=== PATIENT | female | born 1950 | race Caucasian/White ===

== ENCOUNTER 2023-07-05 00:59 | Inpatient (IN) | payer MEDICARE, OTHER ==
[2023-07-05] VITALS (17 sets, daily range): BP systolic 129–182; BP diastolic 71–94; PULSE 79–93; TEMP 98.1–99.2
[~2023-07-05] VITALS: Ht 167.6 cm; Wt 71.6 kg
[~2023-07-05 00:59] MED LIST: ASPIRIN E.C. 8181 MG PO; LOPRESSOR 550 MG/TAB PO; NORCO 325 MG-51 TAB PO; PRAVACHOL 40MG40 MG PO
[2023-07-05] MEDS ORDERED: Morphine 4 MG/ML VIAL IV PRN (01:15)
[2023-07-05] MEDS ORDERED: Naloxone 0.4 MG/ML VIAL IV PRN ×2 (01:15→20:00)
[2023-07-05] MEDS ORDERED: oxyCODONE 5 MG TAB PO PRN (01:15)
[2023-07-05] MEDS ORDERED: D5 1/2 NS 1,000 ML IV SCH (01:15)
[2023-07-05] MEDS ORDERED: COZAAR 50MG50 MG/TAB PO (01:26)
[2023-07-05] MEDS ORDERED: GLUCOPHAGE500 MG/TAB PO (01:27)
[2023-07-05] MEDS ORDERED: MACRODANTIN100 PO (01:29)
[2023-07-05] MEDS ORDERED: SYNTHROID0.05 MG/TA PO (01:29)
[2023-07-05] MEDS ORDERED: NAMENDA5 MG PO (01:30)
[2023-07-05] MEDS ORDERED: CALCIUM 600MG+D1 TAB PO (01:33)
[2023-07-05] MEDS ORDERED: Acetaminophen 500 MG TAB PO SCH (02:00)
[2023-07-05] MEDS ORDERED: Dextrose (Glucose) 15 GM (4 x 3.75 GM) Chewable TABLET PACK PO PRN (02:00)
[2023-07-05] MEDS ORDERED: hydrALAZINE 20 MG/ML 1 ML VIAL IV PRN (02:00)
[2023-07-05] MEDS ORDERED: Dextrose 50% Water 25 GM/50 ML SYRINGE IV PRN (02:00)
[2023-07-05] MEDS ORDERED: Glucagon 1 MG VIAL IM PRN (02:00)
--- NOTE | 2023-07-05 02:24 | NUR ---
patient arrived from [facility] via EMS transport at 0015, alert and oriented x4 with some forgetfullness, grandaughter at bedside. pt denies chest pain and shortness of breath. reports 10/10 aching pain in the right hip that worsens with movement, tenderness to right hip and right leg, tylenol given per orders. small scabbed cut on left forearm with some swelling and no additional skin abnormalities noted. IV in RAC is patent, site clean dry and intact with D5 1/2 NS running at 75 ml/hr. hartmann in place draining yellow clear urine. pt has no further needs, questions, or concerns at this time. fall precautions in place, call light within reach. will continue to monitor.
[2023-07-05 02:46] LABS: BASO # 0.1 K/mm3 (0.0-0.2); BASO % 0.5 % (0.0-2.0); EOS # 0.1 K/mm3 (0.0-0.7); EOS % 1.1 % (0.0-4.0); GRAN # 10.2 K/mm3 (1.4-6.5); GRAN % 87.3 % (42.2-75.2); HEMOGLOBIN 12.6 g/dl (12.5-16.0); LYMPH # 0.7 K/mm3 (1.2-3.4); LYMPH % 5.6 % (20.0-51.0); MEAN CELL VOLUME 87 fl (80.0-100.0); MEAN CORPUSCULAR HEMOGLOBIN 31 pg (27-31); MEAN CORPUSCULAR HGB CONC 35 g/dl (33.0-37.0); MEAN PLATELET VOLUME 9.4 fl (7.4-10.4); MONO # 0.6 K/mm3 (0.1-0.6); PLATELET COUNT 166 K/mm3 (130-400); RED BLOOD COUNT 4.09 M/mm3 (4.10-5.30); REDCELL DISTRIBUTION WIDTH-CV 12.9 % (11.5-14.5)
[2023-07-05 02:52] LABS: HEMATOCRIT 35.7 % (37.0-47.0)
[2023-07-05 02:55] LABS: INR 1.1 (0.8-3.0); PROTHROMBIN TIME 12.1 SECONDS (9.7-12.8)
[2023-07-05 03:26] LABS: ALBUMIN 3.5 gm/dL (3.4-4.8); BILIRUBIN,TOTAL 0.7 mg/dL (0.2-1.2); CALCIUM 9.1 mg/dL (8.4-10.2); CREATININE, serum 0.82 mg/dL (0.57-1.11); POTASSIUM 4.5 mmol/L (3.5-4.5); TOTAL PROTEIN 6.2 gm/dL (6.2-8.1)
[2023-07-05] MEDS ORDERED: Insulin Aspart (NovoLOG) SQ SCH (06:00)
--- NOTE | 2023-07-05 07:17 | NUR ---
CONTACTED [facility], NOTIFIED OF CONSULT. THEY ARE AWARE.
--- NOTE | 2023-07-05 08:52 | NUR ---
PT RESTING IN BED. PT IS CLEAR FOR SURGERY PENDING BNP RESULTS, JARED JIMENEZ AWARE.
[2023-07-05] MEDS ORDERED: Influenza Virus Vaccine, Hi-Dose Quad '23-24 (65 YR+) 0.7 ML SYRINGE IM SCH (09:00)
--- NOTE | 2023-07-05 09:58 | NUR ---
NOTIFIED AND JARED JIMENEZ OF LAB RESULTS, PT IS CLEAR FOR SURGERY.
[2023-07-05] MEDS ORDERED: TOPROL XL100 MG PO (10:36)
--- NOTE | 2023-07-05 11:03 | NUR ---
General Intern met with patient and her family to discuss discharge planning. Patient's Orestes (ph#[phone]) and granddaughter Christina are at bedside. Christina remarked that she works at this hospital in diabetes education. Patient lives [place] outside of [place] and sees Dr. Melgar for [facility]. Patient obtains medications from [facility] in [place]. Patient has a cane and walker available at home, however she stated she does not like them. Patient sometimes will use her cane, but rarely the walker. Patient advised she is normally independent with ADLS. Patient brought in her DPOA-HC and SW took a copy and placed it in her chart. Patient is hopeful to have surgery today and her family advised they would like to go to [facility] after surgery. ADRIENNE contacted Myranda at [facility] and faxed referral. Discharge Plan: [facility], referral pending
[2023-07-05] MEDS ORDERED: LR 1,000 ML IV SCH (11:15)
--- NOTE | 2023-07-05 14:24 | NUR ---
PT TO SURGERY PER BED WITH LUC AT THIS TIME.
[2023-07-05] MEDS ORDERED: Lidocaine PF 2% (20 MG/ML) 5 ML VIAL ONE (14:55)
[2023-07-05] MEDS ORDERED: fentaNYL 50 MCG/ML 2 ML VIAL ONE (14:56)
[2023-07-05] MEDS ORDERED: HYDROmorphone 2 MG/1 ML VIAL ONE (16:08)
[2023-07-05] MEDS ORDERED: fentaNYL 50 MCG/ML 2 ML VIAL IV PRN (17:45)
[2023-07-05] MEDS ORDERED: HYDROmorphone 2 MG/1 ML VIAL IV PRN (17:45)
[2023-07-05] MEDS ORDERED: Ondansetron 4 MG/2 ML VIAL IV PRN (17:45)
--- NOTE | 2023-07-05 18:45 | NUR ---
PT RETURNS FROM SURGERY PER BED. AWAKENS TO NAME, SLEEPY. HAS OXYMASK @6L. IVF TO LT HAND INFUSING WITHOUT PROBLEM. RT HIP WITH ASHELY DRSG AND ICE PACK. SCDS AND TEDS ON. FAMILY AT BEDSIDE.
[2023-07-05] MEDS ORDERED: HYDROcodone/Acetaminophen 7.5-325 MG TAB PO PRN (20:00)
[2023-07-05] MEDS ORDERED: traMADol 50 MG TAB PO PRN (20:00)
--- NOTE | 2023-07-05 20:00 | NUR ---
PT RESTING WELL. FAMILY LEFT FOR THE NIGHT. VSS.
[2023-07-05] MEDS ORDERED: Aspirin Buffered 325 MG TAB PO SCH (21:00)
--- NOTE | 2023-07-05 22:00 | NUR ---
PT ROUSES TO NAME, TAKES ASA WITH WATER, DOES WELL. OXYMASK AT 3L.
[2023-07-06] VITALS (10 sets, daily range): BP systolic 134–168; BP diastolic 79–99; PULSE 68–111; TEMP 97.8–98.6
[2023-07-06] MEDS ORDERED: ceFAZolin 1 G in Water For Injection,Sterile 10 ML IV SCH
--- NOTE | 2023-07-06 00:10 | NUR ---
PT TAKING WATER WITHOUT PROBLEM. DENIES NEED FOR PAIN MEDS. OXYGEN AT 2L/NC. IVF TO LT HAND.
--- NOTE | 2023-07-06 03:56 | NUR ---
SAO2=92% ON ROOM AIR.
--- NOTE | 2023-07-06 04:18 | NUR ---
PT ROUSES EASILY TO NAME. DENIES NEED FOR PAIN MEDS, ICE PACK REPLACED.
--- NOTE | 2023-07-06 05:31 | NUR ---
PT AWAKE, OXYGEN OFF SAO2=92%. REPORTS MILD PAIN TO RT HIP, NORCO GIVEN AT THIS TIME.
[2023-07-06 06:41] LABS: BASO # 0.1 K/mm3 (0.0-0.2); BASO % 0.7 % (0.0-2.0); EOS # 0.1 K/mm3 (0.0-0.7); EOS % 0.7 % (0.0-4.0); GRAN # 7.5 K/mm3 (1.4-6.5); GRAN % 83.8 % (42.2-75.2); HEMOGLOBIN 11.1 g/dl (12.5-16.0); LYMPH # 0.7 K/mm3 (1.2-3.4); LYMPH % 7.6 % (20.0-51.0); MEAN CELL VOLUME 87 fl (80.0-100.0); MEAN CORPUSCULAR HEMOGLOBIN 31 pg (27-31); MEAN CORPUSCULAR HGB CONC 36 g/dl (33.0-37.0); MEAN PLATELET VOLUME 9.7 fl (7.4-10.4); MONO # 0.6 K/mm3 (0.1-0.6); MONO % 6.6 % (1.7-9.3); PLATELET COUNT 152 K/mm3 (130-400); REDCELL DISTRIBUTION WIDTH-CV 12.7 % (11.5-14.5)
[2023-07-06 06:46] LABS: HEMATOCRIT 31.3 % (37.0-47.0)
[2023-07-06 07:00] LABS: CALCIUM 8.3 mg/dL (8.4-10.2); CREATININE, serum 0.79 mg/dL (0.57-1.11)
[2023-07-06] MEDS ORDERED: Influenza Virus Vaccine, Hi-Dose Quad '23-24 (65 YR+) 0.7 ML SYRINGE IM SCH (09:00)
--- NOTE | 2023-07-06 09:42 | NUR ---
PT UP IN BED EATING BREAKFAST THIS AM. PT FINISHED BREAKFAST, FAMILY AT BEDSIDE. PLAN ON TRANSFER TO SWINGBED AT A LATER TIME. DRESSING TO RIGHT HIP CDI. PT WORKING WITH [employer] THIS AM.
[2023-07-06] MEDS ORDERED: ASPIRIN 32325 MG/TA1 PO (12:05)
[2023-07-06] MEDS ORDERED: ULTRAM 50MG TAB50 MG PO (12:06)
--- NOTE | 2023-07-06 14:21 | NUR ---
D: Initial visit: Compliance Engineer stopped by room on rounds Pt was resting and content. A: Pt was with visitors and has no needs right now. P: Compliance Engineer informed pt that if she needed anything to let her nurse know. Compliance Engineer will follow up as needed.
--- NOTE | 2023-07-06 16:42 | NUR ---
Lithographic Printing Machinist contacted YANE Whitmore at [facility] and faxed updates. Myranda will have team review updates to determine if they can accept.
--- NOTE | 2023-07-06 21:20 | NUR ---
PT IN BED, REPORTS NO APPETITE, DID DRINK HALF OF HER ENSURE. HS MEDS GIVEN INCLUDING NORCO FOR PAIN AND HYDRALAZINE FOR ELEVATED B/P. HAS INT TO LT HAND, FLUSHES WELL. IS ALERT TO SELF, UNSURE OF PLACE OR DATE/TIME. RE-ORIENTED AT THIS TIME. HAS AQUACEL TO RT HIP D/I. TEDS AND SCDS ON. BED ALARM SET.
[2023-07-07] VITALS (12 sets, daily range): BP systolic 117–157; BP diastolic 68–91; PULSE 85–115; TEMP 98–98.7
--- NOTE | 2023-07-07 05:00 | NUR ---
PT UNABLE TO VOID, BLADDER SCANNED FOR 430CC, ASSISTED TO BSC WITH 2 ASSIST, UNABLE TO VOID.
--- NOTE | 2023-07-07 05:30 | NUR ---
ONE TIME STRAIGHT CATH ORDER FROM DR SAAVEDRA, CATHED FOR 400CC OF CLEAR YELLOW URINE.
[2023-07-07 07:27] LABS: BASO # 0.1 K/mm3 (0.0-0.2); BASO % 0.7 % (0.0-2.0); EOS # 0.4 K/mm3 (0.0-0.7); EOS % 5.3 % (0.0-4.0); GRAN # 5.7 K/mm3 (1.4-6.5); GRAN % 74.8 % (42.2-75.2); LYMPH # 0.7 K/mm3 (1.2-3.4); LYMPH % 9.8 % (20.0-51.0); MEAN CELL VOLUME 86 fl (80.0-100.0); MEAN CORPUSCULAR HGB CONC 36 g/dl (33.0-37.0); MEAN PLATELET VOLUME 9.8 fl (7.4-10.4); MONO # 0.6 K/mm3 (0.1-0.6); MONO % 8.5 % (1.7-9.3); PLATELET COUNT 142 K/mm3 (130-400); RED BLOOD COUNT 3.22 M/mm3 (4.10-5.30); REDCELL DISTRIBUTION WIDTH-CV 12.8 % (11.5-14.5)
[2023-07-07 07:30] LABS: HEMATOCRIT 27.7 % (37.0-47.0); HEMOGLOBIN 9.9 g/dl (12.5-16.0); MEAN CORPUSCULAR HEMOGLOBIN 31 pg (27-31)
[2023-07-07 07:47] LABS: CALCIUM 8.3 mg/dL (8.4-10.2); CREATININE, serum 0.76 mg/dL (0.57-1.11); POTASSIUM 3.3 mmol/L (3.5-4.5)
--- NOTE | 2023-07-07 08:30 | NUR ---
pt a&ox3 resting in bed, grand daughter at bedside. vss. meds given and assessment complete. aquacell dressing cdi. scds and teds to ble. ice pack to right hip. INT to left hand patent. pt rates pain a 2/10. fall precautions in place. pt denies needs at this time. call light in reach.
--- NOTE | 2023-07-07 08:37 | NUR ---
therapy assisted pt to recliner, reports pt is a max assist.
--- NOTE | 2023-07-07 11:53 | NUR ---
pt attempted to use the commode and was unsuccessful. blood pressure elevated as well. notified MANDI Helm to reorder patients home meds as well as change ACCU check to [facility]. order to straight cath pt, bladder scan showed 489 in bladder.
--- NOTE | 2023-07-07 12:01 | NUR ---
Operating Room Aide spoke with YANE Whitmore at [facility] who advised they can accept patient on Monday. ADRIENNE updated Hospitalist, patient, and patient's granddaughter, Christina. Discharge Plan: [facility]
--- NOTE | 2023-07-07 15:30 | NUR ---
assisted pt to commode, pt able to successfully urinate. pt denies pain with ambulation. pt denies needs. fall precautions in place.
[2023-07-07] MEDS ORDERED: Insulin Aspart (NovoLOG) SQ SCH (17:00)
--- NOTE | 2023-07-07 17:42 | NUR ---
called dr winters to resume patients home medications.
[2023-07-07] MEDS ORDERED: Calcium Carb/Vit D3 500 mg-200 Units TAB PO SCH (17:46)
[2023-07-07] MEDS ORDERED: NITROFURANTOIN 50 MG PO SCH (17:46)
[2023-07-07] MEDS ORDERED: Losartan 50 MG TAB PO SCH (17:46)
[2023-07-07] MEDS ORDERED: Memantine 5 MG TAB PO SCH (17:46)
[2023-07-07] MEDS ORDERED: traMADol 50 MG TAB PO SCH (18:00)
[2023-07-07] MEDS ORDERED: metFORMIN 500 MG TAB PO SCH (21:00)
--- NOTE | 2023-07-07 21:19 | NUR ---
Patient assessed at this time, see shift assessment, reports pain to right hip, PS of 5/10, [place] given, still with IV on left hand infusing well, aquacel dressing CDI, denies further needs, call light and personal items within reach, will continue to monitor.
[2023-07-08] VITALS (13 sets, daily range): BP systolic 115–176; BP diastolic 69–91; PULSE 66–81; TEMP 97.6–98.9
--- NOTE | 2023-07-08 03:13 | NUR ---
Called Radha, the ACTUARIAL TECHNICIAN and informed her that patient hasn't voided yet since shift changed, no new orders at this time, provided measures to promote voiding, will continue to monitor.
--- NOTE | 2023-07-08 03:40 | NUR ---
Patient got up to the BSC with 2x assist to try to void, tried turning on the faucet to promote voiding and warm compress but unable to void, will monitor.
--- NOTE | 2023-07-08 05:42 | NUR ---
Bladder scanned again and resulted to 470ml.
--- NOTE | 2023-07-08 06:00 | NUR ---
Spoken to Dr. Tyler about the bladder scan result of 470ml, no new orders at this time, will continue to monitor.
[2023-07-08 07:45] LABS: MEAN CORPUSCULAR HGB CONC 34 g/dl (33.0-37.0); MEAN PLATELET VOLUME 9.7 fl (7.4-10.4); PLATELET COUNT 147 K/mm3 (130-400); RED BLOOD COUNT 3.13 M/mm3 (4.10-5.30); REDCELL DISTRIBUTION WIDTH-CV 13.2 % (11.5-14.5)
[2023-07-08 08:01] LABS: CALCIUM 8.3 mg/dL (8.4-10.2); CREATININE, serum 0.77 mg/dL (0.57-1.11); POTASSIUM 3.6 mmol/L (3.5-4.5)
[2023-07-08 08:07] LABS: HEMATOCRIT 28.4 % (37.0-47.0); HEMOGLOBIN 9.7 g/dl (12.5-16.0); MEAN CELL VOLUME 91 fl (80.0-100.0); MEAN CORPUSCULAR HEMOGLOBIN 31 pg (27-31)
[2023-07-08 08:37] LABS: BAND 10 % (0-10); BASOPHIL 2 % (0-2); EOSINOPHIL 8 % (0-4); LYMPHOCYTE 14 % (20.0-51.0); METAMYELOCYTE 1 % (0-0); NEUTROPHILS 61 % (42.0-75.2)
[2023-07-08 08:40] LABS: PLATELET ESTIMATE NORMAL (NORMAL)
[2023-07-08] MEDS ORDERED: Nitrofurantoin (Mono/Macro) 100 MG CAP PO SCH (09:00)
--- NOTE | 2023-07-08 10:42 | NUR ---
Patient awake, alert, oriented x3. Voided this AM easily, stand/pivot x2 to bedside commode. Denies pain or nausea, toleerated breakfast, poor appetite at times. In chair with chair alarm on, fall precautions in place, call light within reach.
--- NOTE | 2023-07-08 14:46 | NUR ---
ornamental iron worker apprentice faxed clinical updates to [facility]. Discharge Plan: [facility] on Monday
--- NOTE | 2023-07-08 15:40 | NUR ---
Patient complaining of nausea after eating a couple bites of dinner. One episode of emesis this AM. Hospitalist informed, see orders.
[2023-07-08] MEDS ORDERED: Ondansetron 4 MG/2 ML VIAL IV PRN (15:45)
--- NOTE | 2023-07-08 20:43 | NUR ---
Patient resting in bed, family just left, denies pain or discomfort, denies N/V, IV to left hand leaking, restarted new IV to right wrist, remains on room air, aquacel to right hip CDI, denies further needs, call light and personal items within reach, will continue to monitor.
[2023-07-09] VITALS (13 sets, daily range): BP systolic 115–198; BP diastolic 76–91; PULSE 67–80; TEMP 97.5–98.7
--- NOTE | 2023-07-09 09:36 | NUR ---
SHIFT ASSESSMENT COMPLETE. VSS. PATIENT UP TO CHAIR FOR BREAKFAST. PATIENT COMPLAINING OF NEUSEA AFTER AMBULATING TO CHAIR, REQUESTING NO INTERVENTION AT THIS TIME. ALL MORNING MEDS GIVEN TO PATIENT ORDERED. PATIENT HAS NO REQUEST AT THIS TIME. FALL PRECAUTIONS IN PLACE AND CALL LIGHT IN REACH.
--- NOTE | 2023-07-09 19:00 | NUR ---
PATIENT RESTING IN BED WITH TV ON WITH NO FAMILY PRESENT WITH NO ACUTE DISTRESS NOTED. PATIENT ON ROOM AIR. INT TO RIGHT WRIST INTACT. PATIENT CARE ASSUMED FROM [place] AT THIS TIME. OP SITE CLEAN, DRY, AND INTACT TO RIGHT LEG. PATIENT DENIES ANY NEEDS AT HTIS TIME. BED IN LOW POSITION WITH WHEELS LOCKED WITH RAILS UP X3 AND CALL LIGHT WITHIN REACH. BED ALARM ON.
--- NOTE | 2023-07-09 20:40 | NUR ---
PATIENT RESTING IN BED WITH TV OFF WITH NO FAMILY PRESENT WITH NO ACUTE DISTRESS NOTED. PATIENT ON ROOM AIR. INT INTACT TO RIGHT WRIST WITH NO COMPLICATIONS NOTED. ASSESSMENT AND MEDICATION ADMINISTRATION COMPLETED AT THIS TIME. PATIENT TOELRATED WELLL. PATIENT DENIES ANY NEEDS AT THIS TIME. BED IN LOW POSITION WITH WHEELS LOCKED WITH RAILS UP X3 AND CALL LIGHT WITHIN REACH. BED ALARM ON.
[2023-07-10 00:05] VITALS: BP_SYST 158
[2023-07-10 03:53] VITALS: BP 161/67; PULSE 67; TEMP 98.2
[2023-07-10 04:05] VITALS: BP_SYST 161
[2023-07-10 06:47] LABS: HEMATOCRIT 28.1 % (37.0-47.0); HEMOGLOBIN 9.6 g/dl (12.5-16.0)
[2023-07-10 06:55] LABS: CALCIUM 8.4 mg/dL (8.4-10.2); CREATININE, serum 0.72 mg/dL (0.57-1.11); MAGNESIUM 1.8 mg/dL (1.6-2.6)
--- NOTE | 2023-07-10 07:33 | NUR ---
PATIENT ALERT AND ORIENTED X4. VSS. PATIENT HERE FOR RIGHT HIP FRACTURE. AQUACELL TO RIGHT HIP, CDI. IV TO RIGHT WRIST INT AND FLUSHES WELL. PATIENT DENIES ANY PAIN THIS MORNING. PATIENT UP TO CHAIR, VOIDING WITH NO ISSUES. CHAIR ALARM ON. CALL LIGHT IN REACH.
[2023-07-10 08:00] VITALS: BP 170/90; PULSE 70; TEMP 98.3
[2023-07-10] MEDS ORDERED: COZAAR 50MG50 MG/TAB PO (08:24)
[2023-07-10] MEDS ORDERED: Losartan 50 MG TAB PO SCH (09:00)
[2023-07-10 10:35] VITALS: BP_SYST 170
[2023-07-10 12:00] VITALS: BP 142/65
--- NOTE | 2023-07-10 12:13 | NUR ---
IV DC'D. TOLERATED WELL. PATIENT ESCORTED OUT WITH BELONGINGS. PACKET GIVEN TO GRANDDAUGHTER, DOMINIQUE. REPORT CALLED TO SAMY AT [facility].
--- NOTE | 2023-07-10 15:57 | NUR ---
gathering worker was notified patient is medically stable for discharge to the [facility]. ADRIENNE attempted to contact Myranda at the [facility]. No answer. ADRIENNE left a voicemail. ADRIENNE attempted to contact Myranda, no answer. ADRIENNE spoke with Bree whom expressed Myranda had been in a meeting but would get back with the worker. ADRIENNE spoke with Myranda whom expressed they could accept and would need discharge orders. ADRIENNE faxed discharge orders to [facility]. ADRIENNE updated patient's nurse, community affairs manager, patient, patient's granddaughter and her . ADRIENNE met with the patient and reviewed the important message from Medicare. Patient understood her rights, had no questions, signed the form. ADRIENNE made a copy, placed original in chart and provided copy to the patient. ADRIENNE was notified patient's granddaughter is going to pick up operator patient and transfer to the swing bed at 12 pm today. ADRIENNE updated patient's nurse and community affairs manager. Discharge plan: [facility]
== END 2023-07-10 12:15 | disposition swing bed (61) | DRG 522 ==
LOC: SURG 00:59
PROVIDERS: Internal Medicine; Orthopaedic Surgery; ADMIT Internal Medicine
PROC: 0SRR0J9 Replacement of Right Hip Joint, Femoral Surface with Synthetic Substitute, Cemented, Open Approach (ICD-10-PCS; principal; 2023-07-05 15:00)
DX: S72.001A Fracture of unspecified part of neck of right femur, initial encounter for closed fracture (principal); E11.9 Type 2 diabetes mellitus without complications; Z79.4 Long term (current) use of insulin; I10 Essential (primary) hypertension; E78.5 Hyperlipidemia, unspecified; G30.9 Alzheimer's disease, unspecified; F02.80 Dementia in other diseases classified elsewhere, unspecified severity, without behavioral disturbance, psychotic disturbance, mood disturbance, and anxiety
CPT/HCPCS: A6197; A9284; C1776; J0360; J0690; J1170; J1815; J2270; J2405; J2704; J2795; J3010; J7120